=== PATIENT | female | born 1990 | race Caucasian/White ===

== ENCOUNTER 2018-05-23 17:04 | Emergency (ER) | payer OTHER ==
--- NOTE | 2018-05-23 17:40 | ED ---
General Adult HPI - General Chief complaint: Urogenital Stated complaint: poss bladder/kidney infection Time Seen by Provider: 05/23/18 17:17 Source: patient, RN notes reviewed Mode of arrival: ambulatory Limitations: no limitations - History of Present Illness Initial comments: 27-year-old female presents to the emergency department for a chief complaint of left-sided lower back pain 1 hour. Patient states she was standing at the counter at work when she felt a sudden sharp pain in her left lower back. Patient states this was immediately proceeded by some lower abdominal cramping. Patient admits to worsening pain with movement. She states she initially thought this was cramps from her period as she is supposed to start this soon. However, patient did have some back pain 1 week ago with hematuria and presented to the urgent care and was diagnosed with a urinary tract infection. Denies dysuria or pelvic pain. She has been taking Cipro for the past week. She states they told her she had any worsening back pain to go to the emergency department for possible kidney stone or infection. Patient states she has been drinking plenty of fluids. She denies nausea or vomiting. She denies any other abdominal pain. Denies any chance of . Patient has no other complaints at this time including shortness of breath, chest pain, abdominal pain, nausea or vomiting, headache, or visual changes. - Related Data Previous Rx's Medication Instructions Recorded Ondansetron [Zofran ODT] 4 mg PO Q8HR PRN #15 tab 05/23/18 RX: Ibuprofen [Motrin] 600 mg PO Q8HR PRN #20 tab 05/23/18 Allergies Allergy/AdvReac Type Severity Reaction Status Date / Time hydrocodone Allergy Rash/Hives Verified 05/23/18 17:09 Review of Systems ROS Statement: Those systems with pertinent positive or pertinent negative responses have been documented in the HPI. ROS Other: All systems not noted in ROS Statement are negative. Past Medical History Past Medical History: Thyroid Disorder History of Any Multi-Drug Resistant Organisms: None Reported Past Surgical History: Orthopedic Surgery, Tonsillectomy Additional Past Surgical History / Comment(s): R wrist Past Psychological History: No Psychological Hx Reported Smoking Status: Never smoker Past Alcohol Use History: Occasional Past Drug Use History: None Reported General Exam Limitations: no limitations General appearance: alert, in no apparent distress Head exam: Present: atraumatic, normocephalic, normal inspection Eye exam: Present: normal appearance, PERRL, EOMI. Absent: scleral icterus, conjunctival injection, periorbital swelling ENT exam: Present: normal exam, mucous membranes moist Neck exam: Present: normal inspection, full ROM. Absent: tenderness, meningismus, lymphadenopathy Respiratory exam: Present: normal lung sounds bilaterally. Absent: respiratory distress, wheezes, rales, rhonchi, stridor Cardiovascular Exam: Present: regular rate, normal rhythm, normal heart sounds. Absent: systolic murmur, diastolic murmur, rubs, gallop, clicks GI/Abdominal exam: Present: soft, normal bowel sounds. Absent: distended, tenderness (No tenderness whatsoever in the abdomen, no tenderness in the upper or lower quadrants, no suprapubic tenderness.), guarding, rebound, rigid Back exam: Present: full ROM (Full range of motion of the lumbar spine. Patient has pain with extension of the lumbar spine), tenderness (Tenderness on palpation to the left SI joint.). Absent: CVA tenderness (R), CVA tenderness (L ) (No CVA tenderness.) Neurological exam: Present: alert, oriented X3, CN II-XII intact Psychiatric exam: Present: normal affect, normal mood Course Vital Signs 05/23/18 05/23/18 05/23/18 17:09 18:38 20:56 Temperature 98.3 F 98.7 F Pulse Rate 112 H 77 73 Respiratory 18 18 16 Rate Blood Pressure 137/89 132/89 142/95 O2 Sat by Pulse 96 94 L 97 Oximetry Medical Decision Making - Medical Decision Making 19-year-old female presents the emergency department for a chief complaint of left low back pain times one week. Patient states the pain has been intermittent. Patient states she has also had hematuria. Patient was diagnosed with urinary tract infection and started on Cipro one week ago. Patient denies any history of dysuria but states her back pain is not resolved. No CVA tenderness on exam. No abdominal tenderness on exam. Patient is well- appearing. She does not appear toxic. Urine does show moderate blood with greater than 182 red blood cells. HCG is negative. 4 mm proximal left ureterolith with no evidence of hydronephrosis or hydroureter. Urine does have 46 white cells with small leukocyte esterase however white cells are likely due to high amount of red blood cells. Do not have high suspicion of septic stone at this time, patient is afebrile and appears well. Urine however will be cultured. Patient is given prescription for Motrin and Zofran if she becomes nauseous. She will follow up with urology and was given referral. She will return here if she has any worsening symptoms. Discussed with Dr. Agee - Lab Data Result diagrams: 05/23/18 18:37 05/23/18 18:37 Lab Results 05/23/18 05/23/18 05/23/18 Range/Units 17:31 17:31 18:37 WBC 11.2 H (3.8-10.6) k/uL RBC 5.08 (3.80-5.40) m/uL Hgb 14.8 (11.4-16.0) gm/dL Hct 43.9 (34.0-46.0) % MCV 86.4 (80.0-100.0) fL MCH 29.2 (25.0-35.0) pg MCHC 33.8 (31.0-37.0) g/dL RDW 12.7 (11.5-15.5) % Plt Count 332 (150-450) k/uL Neutrophils % 68 % Lymphocytes % 22 % Monocytes % 6 % Eosinophils % 2 % Basophils % 1 % Neutrophils # 7.7 (1.3-7.7) k/uL Lymphocytes # 2.5 (1.0-4.8) k/uL Monocytes # 0.7 (0-1.0) k/uL Eosinophils # 0.2 (0-0.7) k/uL Basophils # 0.1 (0-0.2) k/uL Sodium (137-145) mmol/L Potassium (3.5-5.1) mmol/L Chloride (98-107) mmol/L Carbon Dioxide (22-30) mmol/L Anion Gap mmol/L BUN (7-17) mg/dL Creatinine (0.52-1.04) mg/dL Est GFR (CKD-EPI)AfAm (>60 ml/min/1.73 sqM) Est GFR (CKD-EPI)NonAf (>60 ml/min/1.73 sqM) Glucose (74-99) mg/dL Calcium (8.4-10.2) mg/dL Total Bilirubin (0.2-1.3) mg/dL AST (14-36) U/L ALT (9-52) U/L Alkaline Phosphatase (38-126) U/L Total Protein (6.3-8.2) g/dL Albumin (3.5-5.0) g/dL Urine Color Red Urine Appearance Cloudy H (Clear) Urine pH 5.5 (5.0-8.0) Ur Specific [place] 1.023 (1.001-1.035) Urine Protein 1+ H (Negative) Urine Glucose (UA) Negative (Negative) Urine Ketones Trace H (Negative) Urine Blood Moderate H (Negative) Urine Nitrite Negative (Negative) Urine Bilirubin Negative (Negative) Urine Urobilinogen <2.0 (<2.0) mg/dL Ur Leukocyte Esterase Small H (Negative) Urine RBC >182 H (0-5) /hpf Urine WBC 46 H (0-5) /hpf Ur Squamous Epith Cells 5 H (0-4) /hpf Urine Mucus Moderate H (None) /hpf Urine HCG, Qual Not Detected (Not Detectd) 05/23/18 Range/Units 18:37 WBC (3.8-10.6) k/uL RBC (3.80-5.40) m/uL Hgb (11.4-16.0) gm/dL Hct (34.0-46.0) % MCV (80.0-100.0) fL MCH (25.0-35.0) pg MCHC (31.0-37.0) g/dL RDW (11.5-15.5) % Plt Count (150-450) k/uL Neutrophils % % Lymphocytes % % Monocytes % % Eosinophils % % Basophils % % Neutrophils # (1.3-7.7) k/uL Lymphocytes # (1.0-4.8) k/uL Monocytes # (0-1.0) k/uL Eosinophils # (0-0.7) k/uL Basophils # (0-0.2) k/uL Sodium 141 (137-145) mmol/L Potassium 4.4 (3.5-5.1) mmol/L Chloride 106 (98-107) mmol/L Carbon Dioxide 26 (22-30) mmol/L Anion Gap 9 mmol/L BUN 13 (7-17) mg/dL Creatinine 0.78 (0.52-1.04) mg/dL Est GFR (CKD-EPI)AfAm >90 (>60 ml/min/1.73 sqM) Est GFR (CKD-EPI)NonAf >90 (>60 ml/min/1.73 sqM) Glucose 105 H (74-99) mg/dL Calcium 9.8 (8.4-10.2) mg/dL Total Bilirubin 0.5 (0.2-1.3) mg/dL AST 70 H (14-36) U/L ALT 107 H (9-52) U/L Alkaline Phosphatase 92 (38-126) U/L Total Protein 7.3 (6.3-8.2) g/dL Albumin 4.3 (3.5-5.0) g/dL Urine Color Urine Appearance (Clear) Urine pH (5.0-8.0) Ur Specific [place] (1.001-1.035) Urine Protein (Negative) Urine Glucose (UA) (Negative) Urine Ketones (Negative) Urine Blood (Negative) Urine Nitrite (Negative) Urine Bilirubin (Negative) Urine Urobilinogen (<2.0) mg/dL Ur Leukocyte Esterase (Negative) Urine RBC (0-5) /hpf Urine WBC (0-5) /hpf Ur Squamous Epith Cells (0-4) /hpf Urine Mucus (None) /hpf Urine HCG, Qual (Not Detectd) Disposition Clinical Impression: Kidney stone Disposition: HOME SELF-CARE Condition: Good Instructions: Kidney Stones (ED) Additional Instructions: Please take medications as directed. Please follow-up with urology in 1-2 days. Return to the emergency department if you have any worsening symptoms. Prescriptions: RX: Ibuprofen [Motrin] 600 mg PO Q8HR PRN #20 tab PRN Reason: Pain Ondansetron [Zofran ODT] 4 mg PO Q8HR PRN #15 tab PRN Reason: Nausea Is patient prescribed a controlled substance at d/c from ED?: No Referrals: Jonathan Lawrence MD [STAFF PHYSICIAN] - 1-2 days Time of Disposition: 20:46
[2018-05-23 17:59] LABS: Appearance,Urine Cloudy (Clear); Bilirubin,Urine Negative (Negative); Blood,Urine Moderate (Negative); Color,Urine Red; Glucose,Urine (UA) Negative (Negative); Ketones,Urine Trace (Negative); Leukocyte Esterase,Urine Small (Negative); Mucus,Urine Moderate /hpf; Nitrite,Urine Negative (Negative); PH, Urine 5.5 (5.0-8.0); Protein,Urine 1+ (Negative); RBC,Urine >182 /hpf (0-5); Specific Gravity,Urine 1.023 (1.001-1.035); Squamous Epithelial Cell,Urine 5 /hpf (0-4); Urobilinogen,Urine <2.0 mg/dL (<2.0); WBC,Urine 46 /hpf (0-5)
[2018-05-23 18:42] VITALS: TEMP 98.7
[2018-05-23 18:58] LABS: Basophils # (A) 0.1 k/uL (0-0.2); Basophils % (A) 1 %; Eosinophils # (A) 0.2 k/uL (0-0.7); Eosinophils % (A) 2 %; HCT 43.9 % (34.0-46.0); HGB 14.8 gm/dL (11.4-16.0); Lymphocytes # (A) 2.5 k/uL (1.0-4.8); Lymphocytes % (A) 22 %; MCH 29.2 pg (25.0-35.0); MCHC 33.8 g/dL (31.0-37.0); MCV 86.4 fL (80.0-100.0); Mean Platelet Volume 6.9; Monocytes # (A) 0.7 k/uL (0-1.0); Monocytes % (A) 6 %; Neutrophils # (A) 7.7 k/uL (1.3-7.7); Neutrophils % (A) 68 %; Platelet Count 332 k/uL (150-450); RBC 5.08 m/uL (3.80-5.40); RDW 12.7 % (11.5-15.5); WBC 11.2 k/uL (3.8-10.6)
[2018-05-23 19:12] LABS: ALT 107 U/L (9-52); AST 70 U/L (14-36); Albumin 4.3 g/dL (3.5-5.0); Alkaline Phosphatase 92 U/L (38-126); Anion Gap 9 mmol/L; Blood Urea Nitrogen 13 mg/dL (7-17); Calcium 9.8 mg/dL (8.4-10.2); Carbon Dioxide 26 mmol/L (22-30); Chloride 106 mmol/L (98-107); Glucose 105 mg/dL (74-99); Potassium 4.4 mmol/L (3.5-5.1); Sodium 141 mmol/L (137-145); Total Bilirubin 0.5 mg/dL (0.2-1.3); Total Protein 7.3 g/dL (6.3-8.2)
--- NOTE | 2018-05-23 19:40 | CT ---
EXAMINATION TYPE: CT abdomen pelvis wo con DATE OF EXAM: 05/23/2018 HISTORY: Left lower back pain. CT DLP: 1264.4 mGycm. Automated Exposure Control for Dose Reduction was Utilized. TECHNIQUE: CT scan of the abdomen and pelvis is performed without oral or IV contrast. COMPARISON: NONE FINDINGS: Within the limitations of a non-contrast study, the following observations are made. LUNG BASES: No significant abnormality is appreciated. LIVER/GB: Diffuse low-attenuation of the liver most consistent with hepatic steatosis. PANCREAS: No significant abnormality. SPLEEN: No significant abnormality. ADRENALS: No significant abnormality. KIDNEYS: 4 mm proximal left ureterolith no evidence of hydronephrosis or hydroureter. BOWEL: No significant abnormality is seen. Normal appendix. REPRODUCTIVE ORGANS: No gross abnormality. LYMPH NODES: No greater than 1cm abdominal or pelvic lymph nodes are appreciated. OSSEOUS STRUCTURES: No significant abnormality. OTHER: Small fat filled umbilical hernia. IMPRESSION: 1. 4 mm proximal left ureterolith with no evidence of hydronephrosis or hydroureter. 2. Hepatic steatosis.
[2018-05-23 20:58] VITALS: BP 142/95; PULSE 73; RESP 16
== END 2018-05-23 20:58 | disposition home or self-care (01) ==
LOC: EC 17:04
DX: N20.2 Calculus of kidney with calculus of ureter (principal); Z88.5 Allergy status to narcotic agent
CPT/HCPCS: 36415; 74176; 80053; 81001; 81025; 85025; 87077; 87086; 87186; 99284

== ENCOUNTER → 2019-02-11 | Outpatient (CLI) | payer BC ==
--- NOTE | 2019-02-11 16:00 | US ---
EXAMINATION TYPE: US pelvis complete transvag DATE OF EXAM: 02/11/2019 COMPARISON: NONE CLINICAL HISTORY: N92.0 Excessive and frequent menstruation. Menorrhagia. Vaginal bleeding for 2 ankur hs TECHNIQUE: Transvaginal (TV) and Transabdominal (TA) . Transabdominal sonographic images of the pel vis were acquired. Transvaginal sonographic images were medically necessary to better assess the fol lowing anatomy: uterus and ovaries Date of LMP: end november EXAM MEASUREMENTS: Uterus: 7.6 x 4.1 x 5.5 cm Endometrial Stripe: 0.8 cm Right Ovary: 2.8 x 2.4 x 2.1 cm Left Ovary: unable to visualize *Technical limitations due to patient's body habitus 1. Uterus: Anteverted Nabothian cysts 2. Endometrium: unable to correlate due to LMP 2 months ago and still bleeding 3. Right Ovary: follicles noted 4. Left Ovary: Obscured by overlying bowel gas 5. Bilateral Adnexa: appears wnl 6. Posterior cul-de-sac: wnl IMPRESSION: 1. Right ovarian follicles. Right ovary appears normal. 2. There are some limitations due to patient body habitus. 3. A suspicious abnormality is not identified.
== END | disposition home or self-care (01) ==
LOC: RADUSWWP 10:44
PROVIDERS: ATTEND Family Medicine
DX: N92.0 Excessive and frequent menstruation with regular cycle (principal)
CPT/HCPCS: 76830; 76856

== ENCOUNTER 2019-08-24 05:58 | Emergency (ER) | payer BC ==
[2019-08-24 06:06] VITALS: TEMP 99.5
[2019-08-24] MEDS ORDERED: IPRATROPIUM-ALBUTEROL 3 ML NEB INHALATION STA (06:21)
[2019-08-24] MEDS ORDERED: KETOROLAC 30 MG/ML 1 ML VIAL IVP STA (06:22)
[2019-08-24] MEDS ORDERED: methylPREDNISolone SOD SUCCI 125 MG/2 ML VIAL IV STA (06:23)
[2019-08-24] MEDS ORDERED: KETOROLAC 30 MG/ML 1 ML VIAL IM STA (06:28)
[2019-08-24] MEDS ORDERED: methylPREDNISolone SOD SUCCI 125 MG/2 ML VIAL IM ONE (06:29)
[2019-08-24] MEDS ORDERED: ACETAMINOPHEN TAB 500 MG TAB PO STA (06:30)
--- NOTE | 2019-08-24 06:32 | ED ---
General Adult HPI - General Chief complaint: Upper Respiratory Infection Stated complaint: URI Time Seen by Provider: 08/24/19 06:13 Source: patient, RN notes reviewed, old records reviewed Mode of arrival: ambulatory Limitations: no limitations - History of Present Illness Initial comments: Patient is a 29-year-old female presents emergency room today with sore throat, ear pain for the past 3-4 days. She isn't taking NyQuil occasional Motrin and Tylenol. Patient reports that she woke up today with the pain in the middle of her back and worse with taking deep breath. Patient has a significant cough. She does report a history of asthma as a child. She denies any hormone use, history of blood clots, leg pains or travel history. - Related Data Previous Rx's Medication Instructions Recorded Ibuprofen [Motrin] 600 mg PO Q8HR PRN #20 tab 05/23/18 Ondansetron [Zofran ODT] 4 mg PO Q8HR PRN #15 tab 05/23/18 Albuterol Inhaler [Ventolin Hfa 1 - 2 puff INHALATION RT-Q6H PRN 08/24/19 Inhaler] #1 inhaler Azithromycin [Zithromax Z-pack] 0 mg PO DIRECTED #6 tab 08/24/19 methylPREDNISolone Dose Pack 4 mg PO DIRECTED #21 package 08/24/19 [Medrol Dose Pack] Allergies Allergy/AdvReac Type Severity Reaction Status Date / Time hydrocodone Allergy Rash/Hives Verified 05/23/18 17:09 Review of Systems ROS Statement: Those systems with pertinent positive or pertinent negative responses have been documented in the HPI. ROS Other: All systems not noted in ROS Statement are negative. Past Medical History Past Medical History: Thyroid Disorder History of Any Multi-Drug Resistant Organisms: None Reported Past Surgical History: Orthopedic Surgery, Tonsillectomy Additional Past Surgical History / Comment(s): R wrist Past Psychological History: No Psychological Hx Reported Smoking Status: Never smoker Past Alcohol Use History: Occasional Past Drug Use History: None Reported General Exam - General Exam Comments Initial Comments: Alert and oriented 29-year-old female. Somewhat anxious. Limitations: no limitations General appearance: alert, in no apparent distress Head exam: Present: atraumatic, normocephalic, normal inspection Eye exam: Present: normal appearance, PERRL, EOMI. Absent: scleral icterus, conjunctival injection, periorbital swelling ENT exam: Present: normal exam, mucous membranes moist Neck exam: Present: normal inspection. Absent: tenderness, meningismus, lymphadenopathy Respiratory exam: Present: decreased breath sounds (slight diminished with patient not taking full deep breath due to ain). Absent: normal lung sounds bilaterally, respiratory distress, wheezes, rales, rhonchi, stridor Cardiovascular Exam: Present: regular rate, normal rhythm, normal heart sounds. Absent: systolic murmur, diastolic murmur, rubs, gallop, clicks GI/Abdominal exam: Present: soft, normal bowel sounds. Absent: distended, tenderness, guarding, rebound, rigid Extremities exam: Present: normal inspection, full ROM, normal capillary refill. Absent: tenderness, pedal edema, joint swelling, calf tenderness Back exam: Present: normal inspection Neurological exam: Present: alert, oriented X3, CN II-XII intact Psychiatric exam: Present: normal affect, normal mood Skin exam: Present: warm, dry, intact, normal color. Absent: rash Course Vital Signs 08/24/19 08/24/19 08/24/19 06:01 06:58 07:08 Temperature 99.5 F Pulse Rate 107 H 100 100 Respiratory 20 Rate Blood Pressure 137/90 O2 Sat by Pulse 96 Oximetry Medical Decision Making - Medical Decision Making Patient's 29-year-old female with a sore throat earache for the past few days. Patient reports that she started have some discomfort in her chest and back with taking a deep breath minor cough. Patient's chest x-ray was reviewed and negative. Lungs are relatively clear. She was given IM Solu-Medrol and DuoNeb does report some improvement of her symptoms. D-dimer test is negative. Patient was given IM Toradol and Solu-Medrol also improvement of symptoms. I discussed treating for earache sore throat with steroids and also likely concern for bronchospasm asthma exacerbation with steroids and azithromycin to cover for atypical bacteria.. Patient advised close follow-up with PCP. Return parameters were discussed. - Lab Data Lab Results 08/24/19 08/24/19 Range/Units 06:25 06:25 D-Dimer 0.29 (<0.60) mg/L FEU Influenza Type A RNA Not Detected (Not Detectd) Influenza Type B (PCR) Not Detected (Not Detectd) - Radiology Data Radiology results: report reviewed Normal chest x-ray Disposition Clinical Impression: Pleurisy, URI (upper respiratory infection) Disposition: HOME SELF-CARE Condition: Good Instructions (If sedation given, give patient instructions): Upper Respiratory Infection (ED), Pleurisy (ED) Additional Instructions: Patient advised to take anti-inflammatory medication continue decongestant such as DayQuil or Sudafed. Patient can take the steroid use inhaler. Return to emergency department if any alarming signs or symptoms occur. Follow-up with your primary care doctor. Prescriptions: methylPREDNISolone Dose Pack [Medrol Dose Pack] 4 mg PO DIRECTED #21 package Albuterol Inhaler [Ventolin Hfa Inhaler] 1 - 2 puff INHALATION RT-Q6H PRN #1 inhaler PRN Reason: Shortness Of Breath Azithromycin [Zithromax Z-pack] 0 mg PO DIRECTED #6 tab Is patient prescribed a controlled substance at d/c from ED?: No Referrals: Tiffanie Nelson MD [Primary Care Provider] - 1-2 days Time of Disposition: 07:30
--- NOTE | 2019-08-24 06:43 | XR ---
EXAMINATION TYPE: XR chest 2V DATE OF EXAM: 08/24/2019 COMPARISON: NONE HISTORY: Cough and congestion TECHNIQUE: FINDINGS: Heart and mediastinum are normal. Lungs are clear. Diaphragm is normal. Bony thorax appears normal. IMPRESSION: Normal chest.
[2019-08-24 08:08] VITALS: BP 126/80; PULSE 74; RESP 18
== END 2019-08-24 07:56 | disposition home or self-care (01) ==
LOC: EC 05:58
DX: J02.9 Acute pharyngitis, unspecified (principal); R09.1 Pleurisy; Z88.5 Allergy status to narcotic agent
CPT/HCPCS: 36415; 94640; 85379; 87502; 71046; 96372 ×2; 99284; J2930; J1885

== ENCOUNTER → 2020-11-08 | Outpatient (CLI) | payer BC ==
--- NOTE | 2020-11-09 07:54 | US ---
EXAMINATION TYPE: US pelvis complete transvag DATE OF EXAM: 11/08/2020 COMPARISON: 02/11/2019 CLINICAL HISTORY: N94.2 dysmenorrhea. TECHNIQUE: Transvaginal (TV) and Transabdominal (TA) . Date of LMP: patient bleeding or spotting EXAM MEASUREMENTS: Uterus: 7.7 x 3.5 x 4.6 cm Endometrial Stripe: 0.9 cm. The endometrial stripe measures up to 1.1 cm on transvaginal study, withi n normal limits for menstruating female. Right Ovary: 2.6 x 2.5 x 2.7 cm Left Ovary: obscured by overlying bowel gas 1. Uterus: Anteverted wnl 2. Endometrium: wnl 3. Right Ovary: wnl 4. Left Ovary: Obscured by overlying bowel gas 5. Bilateral Adnexa: wnl 6. Posterior cul-de-sac: wnl IMPRESSION: 1. The left ovary is not visualized. 2. The endometrial stripe measures up to 1.1 cm, within normal limits for menstruating female.
== END | disposition home or self-care (01) ==
LOC: RADUSWWP 15:42
PROVIDERS: ATTEND Family Medicine
DX: N94.6 Dysmenorrhea, unspecified (principal)
CPT/HCPCS: 76830; 76856

== ENCOUNTER 2024-09-17 17:47 | Emergency (ER) | payer BC ==
[2024-09-17 18:04] VITALS: TEMP 98.4
[2024-09-17 20:33] LABS: Basophils # (A) 0.1 k/uL (0-0.2); Basophils % (A) 1 %; Eosinophils # (A) 0.2 k/uL (0-0.7); Eosinophils % (A) 2 %; HCT 43.2 % (34.0-46.0); Lymphocytes # (A) 3.5 k/uL (1.0-4.8); Lymphocytes % (A) 26 %; MCH 27.8 pg (25.0-35.0); MCHC 32.4 g/dL (31.0-37.0); MCV 85.8 fL (80.0-100.0); Mean Platelet Volume 7.7; Monocytes # (A) 0.7 k/uL (0-1.0); Monocytes % (A) 5 %; Neutrophils # (A) 8.7 k/uL (1.3-7.7); Neutrophils % (A) 65 %; Platelet Count 405 k/uL (150-450); RBC 5.04 m/uL (3.80-5.40); RDW 13.3 % (11.5-15.5); WBC 13.4 k/uL (3.8-10.6)
--- NOTE | 2024-09-17 20:37 | ED ---
General Adult HPI - General Chief complaint: Chest Pain Stated complaint: Chest pain Time Seen by Provider: 09/17/24 20:00 Source: patient, RN notes reviewed Mode of arrival: ambulatory Limitations: no limitations - History of Present Illness Initial comments: 34-year-old female presents to the emergency department for evaluation of chest pain. Patient states that this started yesterday and seemed like it was radiating up her neck and back today. She is notes that it is a stabbing pain. She endorses lightheadedness. Reports that this is worse when she stands up. Denies any nausea, vomiting, diaphoresis. She denies any prior history of this. Denies any significant past medical history. She has on oral contraceptive pills. - Related Data Previous Rx's Medication Instructions Recorded Ibuprofen [Motrin] 600 mg PO Q8HR PRN #20 tab 05/23/18 Ondansetron [Zofran ODT] 4 mg PO Q8HR PRN #15 tab 05/23/18 Albuterol Inhaler [Ventolin Hfa 1 - 2 puff INHALATION RT-Q6H PRN 08/24/19 Inhaler] #1 inhaler Azithromycin [Zithromax Z-pack (6 0 mg PO DIRECTED #6 tab 08/24/19 tabs)] methylPREDNISolone Dose Pack 4 mg PO DIRECTED #21 package 08/24/19 [Medrol Dose Pack] Allergies Allergy/AdvReac Type Severity Reaction Status Date / Time hydrocodone Allergy Rash/Hives Verified 09/17/24 18:04 sulfamethoxazole Allergy Rash/Hives Verified 09/17/24 18:04 [From Bactrim] trimethoprim [From Bactrim] Allergy Rash/Hives Verified 09/17/24 18:04 Review of Systems ROS Statement: Those systems with pertinent positive or pertinent negative responses have been documented in the HPI. ROS Other: All systems not noted in ROS Statement are negative. Past Medical History Past Medical History: Thyroid Disorder History of Any Multi-Drug Resistant Organisms: None Reported Past Surgical History: Orthopedic Surgery, Tonsillectomy Additional Past Surgical History / Comment(s): R wrist Past Psychological History: No Psychological Hx Reported Past Alcohol Use History: Occasional Past Drug Use History: None Reported General Exam Limitations: no limitations General appearance: alert, in no apparent distress Head exam: Present: atraumatic, normocephalic, normal inspection Eye exam: Present: normal appearance, PERRL, EOMI. Absent: scleral icterus, conjunctival injection, periorbital swelling ENT exam: Present: normal exam, mucous membranes moist Neck exam: Present: normal inspection. Absent: tenderness, meningismus, lym phadenopathy Respiratory exam: Present: normal lung sounds bilaterally. Absent: respiratory distress, wheezes, rales, rhonchi, stridor Cardiovascular Exam: Present: regular rate, normal rhythm, normal heart sounds. Absent: systolic murmur, diastolic murmur, rubs, gallop, clicks GI/Abdominal exam: Present: soft. Absent: distended, tenderness, guarding, rebound, rigid Extremities exam: Present: normal inspection, full ROM, normal capillary refill. Absent: tenderness, pedal edema, joint swelling, calf tenderness Back exam: Present: normal inspection Neurological exam: Present: alert, oriented X3 Psychiatric exam: Present: normal affect, normal mood Skin exam: Present: warm, dry, intact, normal color. Absent: rash Course Vital Signs 09/17/24 09/17/24 09/18/24 17:59 22:57 00:53 Temperature 98.4 F Pulse Rate 88 66 71 Respiratory 16 17 17 Rate Blood Pressure 150/88 112/77 130/92 O2 Sat by Pulse 98 98 99 Oximetry Medical Decision Making - Medical Decision Making Was pt. sent in by a medical professional or institution (MEGAN Collins, MASTER LAY OUT SPECIALIST, urgent care, hospital, or assisted...) When possible be specific @ -No Did you speak to anyone other than the patient for history (EMS, parent, family, police, friend...)? What history was obtained from this source @ -No Did you review nursing and triage notes (agree or disagree)? Why? @ -I reviewed and agree with nursing and triage notes Were old charts reviewed (outside hosp., previous admission, EMS record, old E KG, old radiological studies, urgent care reports/EKG's, assisted records)? Report findings @ -No old charts were reviewed Differential Diagnosis (chest pain, altered mental status, abdominal pain women, abdominal pain men, vaginal bleeding, weakness, fever, dyspnea, syncope, headache, dizziness, GI bleed, back pain, seizure, CVA, palpatations, mental health, musculoskeletal)? @ -Differential Chest Pain: Stable Angina, Unstable Angina, STEMI, NSTEMI Aortic Dissection, Pneumothorax, Musculoskeletal, Esophageal Spasm GERD, Cholecystitis, Pancreatitis, Zoster, this is not meant to be an all-inclusive list. EKG interpreted by me (3pts min.). @ -EKG at 1809 shows sinus rhythm rate 75, FL 146, QRS 106, QTQTc [id number] X-rays interpreted by me (1pt min.). @ -Chest x-ray shows no acute process CT interpreted by me (1pt min.). @ -CT of the aorta shows no evidence of aortic dissection, no evidence of PE U/S interpreted by me (1pt. min.). @ -None done What testing was considered but not performed or refused? (CT, X-rays, U/S, labs)? Why? @ -None What meds were considered but not given or refused? Why? @ -None Did you discuss the management of the patient with other professionals (professionals i.e. , PA, MASTER LAY OUT SPECIALIST, lab, RT, psych nurse, social work manager, organ teacher, teacher, cra officer, caser shoe parts)? Give summary @ -No Was smoking cessation discussed for >3mins.? @ -No Was critical care preformed (if so, how long)? @ -No Were there social determinants of health that impacted care today? How? (Homelessness, low income, unemployed, alcoholism, drug addiction, transportation, low edu. Level, literacy, decrease access to med. care, intermediate, rehab)? @ -No Was there de-escalation of care discussed even if they declined (Discuss DNR or withdrawal of care, Hospice)? DNR status @ -No What co-morbidities impacted this encounter? (DM, HTN, Smoking, COPD, CAD, Cancer, CVA, ARF, Chemo, Hep., AIDS, mental health diagnosis, sleep apnea, morbid obesity)? @ -None Was patient admitted / discharged? Hospital course, mention meds given and route, prescriptions, significant lab abnormalities, going to OR and other pertinent info. @ -Discharge. Patient presented the emergency department for evaluation of chest pain.[place] studies obtained revealing leukocytosis at 13.4, hemoglobin 14.0 coagulation studies within normal limits, negative D-dimer CMP on actionable, negative troponin. Qualitative hCG is negative. Chest x-ray obtained reveals no acute process. Ultrasound of the right lower extremity shows no evidence of DVT. Patient reports continued pain and CT of the aorta was performed revealing no evidence of aortic dissection, no evidence of PE. Patient was offered admission but would like to be discharged. Strict return precautions discussed. Patient will follow-up with her PCP. She is understanding agreeable with this plan. Patient stable at time of discharge. Case discussed with Dr. Erwin. Undiagnosed new problem with uncertain prognosis? @ -No Drug Therapy requiring intensive monitoring for toxicity (Heparin, Nitro, Insulin, Cardizem)? @ -No Were any procedures done? @ -No Diagnosis/symptom? @ -Chest pain Acute, or Chronic, or Acute on Chronic? @ -Acute Uncomplicated (without systemic symptoms) or Complicated (systemic symptoms)? @ -Uncomplicated Side effects of treatment? @ -No Exacerbation, Progression, or Severe Exacerbation? @ -No Poses a threat to life or bodily function? How? (Chest pain, [place], [place], pneumonia, PE, COPD, DKA, ARF, appy, cholecystitis, CVA, Diverticulitis, Homicidal, Suicidal, threat to staff... and all critical care pts) @ -No - Lab Data Result diagrams: 09/17/24 20:12 09/17/24 20:12 Lab Results 09/17/24 09/17/24 09/17/24 Range/Units 20:12 20:12 20:12 WBC 13.4 H (3.8-10.6) k/uL RBC 5.04 (3.80-5.40) m/uL Hgb 14.0 (11.4-16.0) gm/dL Hct 43.2 (34.0-46.0) % MCV 85.8 (80.0-100.0) fL MCH 27.8 (25.0-35.0) pg MCHC 32.4 (31.0-37.0) g/dL RDW 13.3 (11.5-15.5) % Plt Count 405 (150-450) k/uL MPV 7.7 Neutrophils % 65 % Lymphocytes % 26 % Monocytes % 5 % Eosinophils % 2 % Basophils % 1 % Neutrophils # 8.7 H (1.3-7.7) k/uL Lymphocytes # 3.5 (1.0-4.8) k/uL Monocytes # 0.7 (0-1.0) k/uL Eosinophils # 0.2 (0-0.7) k/uL Basophils # 0.1 (0-0.2) k/uL PT 10.2 (10.0-12.5) sec INR 0.9 (<1.2) APTT 24.2 (22.0-30.0) sec D-Dimer 0.21 (<0.60) mg/L FEU Sodium 136 L (137-145) mmol/L Potassium 3.8 (3.5-5.1) mmol/L Chloride 104 (98-107) mmol/L Carbon Dioxide 24 (22-30) mmol/L Anion Gap 8 mmol/L BUN 6 L (7-17) mg/dL Creatinine 0.66 (0.52-1.04) mg/dL Est GFR (CKD-EPI)AfAm >90 (>60 ml/min/1.73 sqM) Est GFR (CKD-EPI)NonAf >90 (>60 ml/min/1.73 sqM) Glucose 98 (74-99) mg/dL Calcium 9.1 (8.4-10.2) mg/dL Magnesium 2.0 (1.6-2.3) mg/dL Total Bilirubin 0.6 (0.2-1.3) mg/dL AST 29 (14-36) U/L ALT 18 (4-34) U/L Alkaline Phosphatase 83 (38-126) U/L Troponin I (0.000-0.034) ng/mL Total Protein 6.9 (6.3-8.2) g/dL Albumin 4.2 (3.5-5.0) g/dL HCG, Qual 09/17/24 09/17/24 Range/Units 20:12 20:49 WBC (3.8-10.6) k/uL RBC (3.80-5.40) m/uL Hgb (11.4-16.0) gm/dL Hct (34.0-46.0) % MCV (80.0-100.0) fL MCH (25.0-35.0) pg MCHC (31.0-37.0) g/dL RDW (11.5-15.5) % Plt Count (150-450) k/uL MPV Neutrophils % % Lymphocytes % % Monocytes % % Eosinophils % % Basophils % % Neutrophils # (1.3-7.7) k/uL Lymphocytes # (1.0-4.8) k/uL Monocytes # (0-1.0) k/uL Eosinophils # (0-0.7) k/uL Basophils # (0-0.2) k/uL PT (10.0-12.5) sec INR (<1.2) APTT (22.0-30.0) sec D-Dimer (<0.60) mg/L FEU Sodium (137-145) mmol/L Potassium (3.5-5.1) mmol/L Chloride (98-107) mmol/L Carbon Dioxide (22-30) mmol/L Anion Gap mmol/L BUN (7-17) mg/dL Creatinine (0.52-1.04) mg/dL Est GFR (CKD-EPI)AfAm (>60 ml/min/1.73 sqM) Est GFR (CKD-EPI)NonAf (>60 ml/min/1.73 sqM) Glucose (74-99) mg/dL Calcium (8.4-10.2) mg/dL Magnesium (1.6-2.3) mg/dL Total Bilirubin (0.2-1.3) mg/dL AST (14-36) U/L ALT (4-34) U/L Alkaline Phosphatase (38-126) U/L Troponin I <0.012 (0.000-0.034) ng/mL Total Protein (6.3-8.2) g/dL Albumin (3.5-5.0) g/dL HCG, Qual Not Detected Disposition Clinical Impression: Chest pain Disposition: HOME SELF-CARE Condition: Stable Instructions (If sedation given, give patient instructions): Chest Pain (ED) Additional Instructions: Please follow up with your primary care provider. Return to the emergency department for new or worsening symptoms. Is patient prescribed a controlled substance at d/c from ED?: No Referrals: Keya Ambrosio NPC [Primary Care Provider] - 1-2 days
[2024-09-17 20:41] LABS: ALT 18 U/L (4-34); AST 29 U/L (14-36); African American GFR (CKD) >90 (>60 ml/min/1.73 sqM); Albumin 4.2 g/dL (3.5-5.0); Alkaline Phosphatase 83 U/L (38-126); Anion Gap 8 mmol/L; Blood Urea Nitrogen 6 mg/dL (7-17); Calcium 9.1 mg/dL (8.4-10.2); Carbon Dioxide 24 mmol/L (22-30); Chloride 104 mmol/L (98-107); Glucose 98 mg/dL (74-99); Non-African American GFR(CKD) >90 (>60 ml/min/1.73 sqM); Potassium 3.8 mmol/L (3.5-5.1); Sodium 136 mmol/L (137-145); Total Bilirubin 0.6 mg/dL (0.2-1.3); Total Protein 6.9 g/dL (6.3-8.2)
[2024-09-17 20:45] LABS: INR 0.9 (<1.2); Partial Thromboplastin Time 24.2 sec (22.0-30.0); Prothrombin Time 10.2 sec (10.0-12.5)
--- NOTE | 2024-09-17 21:21 | XR ---
EXAMINATION TYPE: XR chest 2V DATE OF EXAM: 09/17/2024 8:40 PM COMPARISON: None CLINICAL INDICATION: Female, 34 years old with history of Chest Pain; [facility] TECHNIQUE: XR chest 2V Frontal and lateral views of the chest. FINDINGS: Lungs/Pleura: There is no evidence of pleural effusion, focal consolidation, or pneumothorax. Pulmonary vascularity: Unremarkable. Heart/mediastinum: Cardiomediastinal silhouette is unremarkable. Musculoskeletal: No acute osseous pathology. IMPRESSION: No acute cardiopulmonary disease/process. [facility], , 09/17/2024 9:19 PM
--- NOTE | 2024-09-17 21:31 | US ---
EXAMINATION TYPE: US venous doppler duplex LE RT DATE OF EXAM: 09/17/2024 8:27 PM COMPARISON: NONE CLINICAL INDICATION: Female, 34 years old with history of pain; pt states brooke horse in calf x 1 d ay, Pain TECHNIQUE: The lower extremity deep venous system is examined utilizing real time linear array sonog irma with graded compression, color doppler sonography, and spectral doppler. SIDE PERFORMED: Right FINDINGS: VESSELS IMAGED: Common Femoral Vein Deep Femoral Vein Greater Saphenous Vein * Femoral Vein Popliteal Vein Small Saphenous Vein * Proximal Calf Veins (* superficial vessels) Right Leg: No evidence for DVT, Color Doppler imaging shows patency of the vessels. Spectral wavefor ms are within normal limits. IMPRESSION: No ultrasound evidence for deep venous thrombosis. [facility], , 09/17/2024 9:28 PM
[2024-09-17 22:58] VITALS: RESP 17
--- NOTE | 2024-09-18 | CT ---
EXAM: CT Angiography Chest Without and With Intravenous Contrast CLINICAL HISTORY: CT Reason: chest pain TECHNIQUE: Axial computed tomographic angiography images of the chest without and with intravenous contrast. CTDI is 58.8 mGy and DLP is 2362.8 mGy-cm. This CT exam was performed using one or more of the following dose reduction techniques: automated exposure control, adjustment of the mA and/or kV according to patient size, and/or use of iterative reconstruction technique. MIP reconstructed images were created and reviewed. COMPARISON: No relevant prior studies available. FINDINGS: Pulmonary arteries: Unremarkable. No pulmonary embolism. Aorta: No acute findings. No thoracic aortic aneurysm. Lungs: Unremarkable. No mass. No consolidation. Pleural space: Unremarkable. No significant effusion. No pneumothorax. Heart: Unremarkable. No cardiomegaly. No significant pericardial effusion. No evidence of RV dysfunction. Bones/joints: No acute fracture. No dislocation. Soft tissues: Unremarkable. Lymph nodes: Unremarkable. No enlarged lymph nodes. IMPRESSION: Normal chest CTA. No pulmonary embolism. EXAM: CT Angiography Abdomen and Pelvis Without and With Intravenous Contrast CLINICAL HISTORY: CT Reason: chest pain TECHNIQUE: Axial computed tomographic angiography images of the abdomen and pelvis without and with intravenous contrast. CTDI is 58.8 mGy and DLP is 2362. 8 mGy-cm. This CT exam was performed using one or more of the following dose reduction techniques: automated exposure control, adjustment of the mA and/or kV according to patient size, and/or use of iterative reconstruction technique. MIP reconstructed images were created and reviewed. COMPARISON: No relevant prior studies available. FINDINGS: VASCULATURE: Aorta: No acute findings. No abdominal aortic aneurysm. No dissection. Celiac trunk and mesenteric arteries: No acute findings. No occlusion or significant stenosis. Renal arteries: No acute findings. No occlusion or significant stenosis. Iliac arteries: No acute findings. No occlusion or significant stenosis. Lung bases: Unremarkable. No mass. No consolidation. ABDOMEN: Liver: Unremarkable. No mass. Gallbladder and bile ducts: Unremarkable. No calcified stones. No ductal dilation. Pancreas: Unremarkable. No ductal dilation. No mass. Spleen: Unremarkable. No splenomegaly. Adrenals: Unremarkable. No mass. Kidneys and ureters: Unremarkable. No obstructing stones. No hydronephrosis. No solid mass. Stomach and bowel: Unremarkable. No obstruction. No mucosal thickening. PELVIS: Appendix: No findings to suggest acute appendicitis. Bladder: Unremarkable. No stones. No mass. Reproductive: Unremarkable as visualized. ABDOMEN and PELVIS: Intraperitoneal space: Unremarkable. No significant fluid collection. No free air. Bones/joints: No acute fracture. No dislocation. Soft tissues: Unremarkable. Lymph nodes: Unremarkable. No enlarged lymph nodes. IMPRESSION: Normal arteries of the abdomen and pelvis.
[2024-09-18 00:54] VITALS: BP 130/92; PULSE 71
== END 2024-09-18 00:54 | disposition home or self-care (01) ==
LOC: EC 17:47
DX: R07.9 Chest pain, unspecified (principal); Z88.1 Allergy status to other antibiotic agents; Z88.2 Allergy status to sulfonamides; Z88.5 Allergy status to narcotic agent
CPT/HCPCS: 36415; 93005; 85379; 80053; 83735; 84484; 85025; 85610; 85730; 84703; 71046; 93971; 71275; 74174; 99285; Q9967